=== PATIENT | female | born 1935 | race Caucasian/White ===

== ENCOUNTER 2021-10-31 01:29 | Inpatient (IN) | payer MEDICARE ==
[2021-10-31 01:37] VITALS: BMI 26.6
[2021-10-31] MEDS ORDERED: Senokot S 8.6-50 MG TAB PO PRN (03:14)
[2021-10-31] MEDS ORDERED: Acetaminophen 325 MG TAB PO PRN (03:14)
[2021-10-31] MEDS ORDERED: Bisacodyl 5 MG TAB PO PRN (03:14)
[2021-10-31] MEDS ORDERED: Ondansetron PF 4 MG/2 ML Vial IVP PRN (03:14)
[2021-10-31] MEDS ORDERED: HYDROcodone/Acetaminophen 5/325 mg Tablet PO PRN (03:14)
[2021-10-31] MEDS ORDERED: Nitroglycerin 0.4 MG TAB (25 Tab Bottle) SL PRN (03:24)
[2021-10-31 05:23] LABS: #Basophils 0.1 10x3/uL (0.0-0.2); #Eosinphils 0.2 10x3/uL (0.0-0.5); #Monocytes 0.9 10x3/uL (0.0-1.1); #Neutrophils 4.2 10x3/uL (1.5-8.4); %Basophils 0.7 % (0.0-2.0); %Eosinophils 2.4 % (0.0-6.0); %Lymphocytes 42.4 % (18.0-47.0); %Monocytes 9.2 % (0.0-10.0); %Neutrophils 45.1 % (40.0-75.0); Hemoglobin 16.2 g/dL (12.0-15.5); Mean Corpuscular HGB CONC 33.3 g/dL (32.0-36.0); Mean Corpuscular Hemoglobin 30.5 pg (27.0-33.0); Mean Corpuscular Volume 91.5 fl (81.6-98.3); Mean Platelet Volume 11.3 fl (7.4-10.4); Platelet Count 216 10x3/uL (150-450); Red Blood Cell (RBC) Count 5.32 10x6/uL (3.90-5.03); White Blood Cell (WBC) Count 9.2 10x3/uL (3.5-10.5)
[2021-10-31 05:47] LABS: Anion Gap 14 mmol/L (10-20); BUN (Urea Nitrogen) 12 mg/dL (9.8-20.1); Calc. Creatinine Clearance 65 mL/min (70-130); Carbon Dioxide 27 mmol/L (23-31); Chloride 105 mmol/L (98-107); Glucose 105 mg/dL (83-110); Potassium 3.4 mmol/L (3.5-5.1); Sodium 143 mmol/L (136-145)
[2021-10-31 06:18] LABS: Troponin I 0.373 ng/mL (< 0.028)
[2021-10-31] MEDS ORDERED: Iopamidol 300 61% 100 ML VIAL FS ONE (08:00)
[2021-10-31 08:52] LABS: Troponin I 0.374 ng/mL (< 0.028)
[2021-10-31] MEDS ORDERED: Enoxaparin Sodium 80 MG/0.8 ML SYRINGE SC SCH (11:00)
[2021-10-31] MEDS ORDERED: Labetalol HCl 100 MG/20 ML VIAL SLOW IVP PRN (16:30)
[2021-10-31] MEDS ORDERED: Moisturizing Cream (Eucerin) 113 GM JAR TOP PRN (16:30)
[2021-10-31] MEDS ORDERED: Electrolyte Replacement Protocol 1 EACH FS SCH (16:30)
[2021-10-31] MEDS ORDERED: Artificial Tear Sol 15 ML BOT EA EYE PRN (16:30)
[2021-10-31] MEDS ORDERED: Sodium Chloride 0.65% Nasal 44 ML BOT EA NARE PRN (16:30)
[2021-10-31] MEDS ORDERED: hydrALAZINE 20 MG/ML VIAL SLOW IVP PRN (16:30)
[2021-10-31] MEDS ORDERED: diphenhydrAMINE 50 MG/ML VIAL IVP SCH (17:14)
[2021-10-31] MEDS ORDERED: Famotidine/PF 20 mg/2ml Vial SLOW IVP SCH ×2 (17:15→17:30)
[2021-10-31] MEDS ORDERED: Lidocaine 1% 20 ML MDV ONE (17:30)
[2021-10-31] MEDS ORDERED: Nitroglycerin 50 MG/250 ML BOT 0 ML ONE (17:30)
[2021-10-31] MEDS ORDERED: Sodium Chloride 0.9% 1,000 ML IV SCH (17:30)
[2021-10-31] MEDS ORDERED: Heparin 10,000 UNITS/ 10 ML VIAL ONE (17:30)
[2021-10-31] MEDS ORDERED: Communication Order-Pharmacy FS SCH (17:30)
[2021-10-31] MEDS ORDERED: Potassium Chloride 20 MEQ TAB PO SCH (17:30)
[2021-10-31] MEDS ORDERED: Fentanyl 100 MCG/2 ML VIAL ONE (17:31)
[2021-10-31] MEDS ORDERED: Adenosine 6 MG/2 ML VIAL ONE (17:31)
[2021-10-31] MEDS ORDERED: Midazolam HCl 2 mg/2 ml Vial ONE (17:32)
[2021-10-31] MEDS ORDERED: Sodium Chloride 0.9% 1,000 ML ONE (17:32)
[2021-10-31] MEDS ORDERED: methylPREDNISolone Sod Succ/PF 125 MG/2 ML VIAL ONE (17:42)
[2021-10-31] MEDS ORDERED: diphenhydrAMINE 50 MG/ML VIAL ONE (17:42)
[2021-10-31] MEDS ORDERED: Famotidine/PF 20 mg/2ml Vial ONE (17:43)
[2021-10-31 18:15] LABS: Troponin I 0.146 ng/mL (< 0.028)
[2021-10-31] MEDS ORDERED: Digoxin 0.5 MG/2 ML AMP ONE (18:30)
[2021-10-31] MEDS ORDERED: Clopidogrel Bisulfate 300 MG TAB ONE (18:40)
[2021-10-31] MEDS ORDERED: Aspirin Chewable 81 MG TAB ONE (18:40)
[2021-10-31] MEDS ORDERED: Morphine 4 MG/ML VIAL ONE (18:49)
[2021-10-31] MEDS ORDERED: Ondansetron PF 4 MG/2 ML Vial ONE (18:53)
[2021-10-31] MEDS ORDERED: Protamine Sulfate 50 MG/5 ML VIAL ONE (19:35)
[2021-10-31] MEDS ORDERED: Carvedilol 6.25 MG TAB PO SCH (20:30)
[2021-10-31] MEDS ORDERED: Metoprolol Tartrate 25 MG TAB PO SCH ×2 (21:00)
[2021-10-31] MEDS ORDERED: Clopidogrel Bisulfate 75 MG TAB PO SCH (21:00)
[2021-10-31] MEDS ORDERED: Aspirin Chewable 81 MG TAB PO SCH (21:00)
[2021-10-31] MEDS ORDERED: Amlodipine 10 MG TAB PO SCH (21:00)
[2021-10-31] MEDS: Sodium Chloride 0.9% 1,000 ML IV SCH (22:34)
[2021-10-31] MEDS: Valsartan 80 MG TAB PO SCH (23:24)
[2021-11-01] MEDS: Sodium Chloride 0.9% 1,000 ML IV SCH (03:00)
[2021-11-01 04:44] LABS: #Monocytes 0.6 10x3/uL (0.0-1.1); #Neutrophils 9.4 10x3/uL (1.5-8.4); %Basophils 0.3 % (0.0-2.0); %Lymphocytes 7.6 % (18.0-47.0); %Monocytes 5.2 % (0.0-10.0); %Neutrophils 86.4 % (40.0-75.0); Hemoglobin 15.9 g/dL (12.0-15.5); Mean Corpuscular HGB CONC 33.2 g/dL (32.0-36.0); Mean Corpuscular Hemoglobin 30.9 pg (27.0-33.0); Mean Platelet Volume 11.7 fl (7.4-10.4); Platelet Count 190 10x3/uL (150-450); RBC Distribution Width 13.2 % (11.5-14.5); Red Blood Cell (RBC) Count 5.15 10x6/uL (3.90-5.03); White Blood Cell (WBC) Count 10.9 10x3/uL (3.5-10.5)
[2021-11-01 04:57] LABS: ALT (SGPT) 15 U/L (8-55); AST (SGOT) 31 U/L (5-34); Albumin 3.6 g/dL (3.4-4.8); Alkaline Phosphatase 82 U/L (40-110); Anion Gap 16 mmol/L (10-20); BUN (Urea Nitrogen) 16 mg/dL (9.8-20.1); Bilirubin, Total 0.5 mg/dL (0.2-1.2); Calc. Creatinine Clearance 53 mL/min (70-130); Calcium 8.6 mg/dL (7.8-10.44); Carbon Dioxide 21 mmol/L (23-31); Chloride 108 mmol/L (98-107); Globulin 2.7 g/dL (2.4-3.5); Glucose 200 mg/dL (83-110); Phosphorus 4.2 mg/dL (2.3-4.7); Potassium 4.7 mmol/L (3.5-5.1); Protein, Total 6.3 g/dL (5.8-8.1); Sodium 140 mmol/L (136-145)
[2021-11-01 05:07] LABS: Anion Gap 17 mmol/L (10-20); BUN (Urea Nitrogen) 16 mg/dL (9.8-20.1); Calc. Creatinine Clearance 55 mL/min (70-130); Calcium 8.6 mg/dL (7.8-10.44); Carbon Dioxide 19 mmol/L (23-31); Cardiac Risk 4.5 (Less than 4.5); Chloride 109 mmol/L (98-107); Cholesterol 241 mg/dl (< 200 Desired); Glucose 198 mg/dL (83-110); HDL Cholesterol 53 mg/dL (>60 Neg Risk); LDL Cholesterol, Calculated 171 mg/dL; Potassium 4.9 mmol/L (3.5-5.1); Sodium 140 mmol/L (136-145); Triglycerides 85 mg/dL (Less than 150)
[2021-11-01] MEDS ORDERED: Carvedilol 6.25 MG TAB PO SCH (08:00)
[2021-11-01] MEDS ORDERED: Rosuvastatin 10 MG TAB PO SCH ×2 (09:00→21:00)
[2021-11-01] MEDS: Valsartan 80 MG TAB PO SCH (09:59)
[2021-11-01 12:23] VITALS: BP 111/57; TEMP 98
[2021-11-01] MEDS ORDERED: Magnesium 2 GM/50 ML(in water) 2 GM in Premix Bag 1 BAG IVPB SCH (13:00)
[2021-11-01 14:20] LABS: Hemoglobin A1c 5.8 % (4.0-6.0)
[2021-11-01] MEDS ORDERED: methylPREDNISolone Sod Succ/PF 125 MG/2 ML VIAL IVP SCH (18:00)
[2021-11-02] MEDS ORDERED: Rosuvastatin 20 MG TAB PO SCH (09:00)
== END 2021-11-01 13:55 | disposition home or self-care (01) | DRG 247 ==
LOC: CSHTELE 01:29
PROVIDERS: ADMIT Internal Medicine; ATTEND Family Medicine
PROC: 027135Z Dilation of Coronary Artery, Two Arteries with Two Drug-eluting Intraluminal Devices, Percutaneous Approach (ICD-10-PCS; principal; 2021-10-31)
PROC: 4A023N7 Measurement of Cardiac Sampling and Pressure, Left Heart, Percutaneous Approach (ICD-10-PCS; 2021-10-31)
PROC: B2111ZZ Fluoroscopy of Multiple Coronary Arteries using Low Osmolar Contrast (ICD-10-PCS; 2021-10-31)
PROC: B2151ZZ Fluoroscopy of Left Heart using Low Osmolar Contrast (ICD-10-PCS; 2021-10-31)
PROC: B241ZZ3 Ultrasonography of Multiple Coronary Arteries, Intravascular (ICD-10-PCS; 2021-10-31)
DX: I21.4 Non-ST elevation (NSTEMI) myocardial infarction (principal); I10 Essential (primary) hypertension; I73.9 Peripheral vascular disease, unspecified; E78.5 Hyperlipidemia, unspecified; I25.10 Atherosclerotic heart disease of native coronary artery without angina pectoris; I34.0 Nonrheumatic mitral (valve) insufficiency; Z20.822 Contact with and (suspected) exposure to COVID-19; Z90.49 Acquired absence of other specified parts of digestive tract; Z90.710 Acquired absence of both cervix and uterus; Z95.820 Peripheral vascular angioplasty status with implants and grafts; Z98.890 Other specified postprocedural states; Z79.02 Long term (current) use of antithrombotics/antiplatelets; Z88.8 Allergy status to other drugs, medicaments and biological substances; Z79.899 Other long term (current) drug therapy; Z79.82 Long term (current) use of aspirin; Z87.891 Personal history of nicotine dependence; Z82.49 Family history of ischemic heart disease and other diseases of the circulatory system
CPT/HCPCS: 36415; 80048; 80061; 83036; 83735; 84100; 84484; 85025; 85347; 92928; 92978; 92979; 93005; 93010; 93306; 93458; 94760; 97139; 99152; 99153; C1726; C1753; C1760; C1769; C1874; C1887; C9600; J0153; J1160; J1200; J1644; J1650; J2250; J2270; J2405; J2720; J2930; J3010; J7050; Q9967; S0028; U0003; U0005

== ENCOUNTER 2021-11-04 21:59 | Inpatient (IN) | payer MEDICARE ==
[2021-11-04 22:00] VITALS: BMI 26.4
[2021-11-04] MEDS ORDERED: Albuterol Sulfate 2.5 mg/3 ml Neb NEB PRN (22:50)
[2021-11-04] MEDS ORDERED: Nitroglycerin 0.4 MG TAB (25 Tab Bottle) SL PRN (22:55)
[2021-11-04] MEDS ORDERED: Clopidogrel Bisulfate 75 MG TAB PO SCH (23:00)
[2021-11-04] MEDS ORDERED: Nitroglycerin 2% Ointment 1 INCH/1 GM Packet TOP SCH (23:00)
[2021-11-04] MEDS ORDERED: Enoxaparin Sodium 80 MG/0.8 ML SYRINGE SC SCH (23:00)
[2021-11-04] MEDS ORDERED: Furosemide 40 MG/4 ML VIAL SLOW IVP SCH (23:00)
[2021-11-04 23:26] LABS: INR-International Normal Ratio 0.9; PTT 27.3 sec (22.0-33.0); Prothrombin Time 10.3 sec (9.5-12.1)
[2021-11-04] MEDS ORDERED: Potassium Chloride 20 MEQ TAB PO SCH (23:30)
[2021-11-04 23:41] LABS: Troponin I 1.051 ng/mL (< 0.028)
[2021-11-04 23:51] LABS: SARS-CoV-2 NAA Rapid Test DETECTED (NotDetected)
[2021-11-05 02:22] LABS: #Monocytes 0.2 10x3/uL (0.0-1.1); #Neutrophils 5.6 10x3/uL (1.5-8.4); %Basophils 0.2 % (0.0-2.0); %Lymphocytes 9.3 % (18.0-47.0); %Monocytes 2.4 % (0.0-10.0); %Neutrophils 87.6 % (40.0-75.0); Hemoglobin 15.1 g/dL (12.0-15.5); Mean Corpuscular HGB CONC 34.5 g/dL (32.0-36.0); Mean Corpuscular Hemoglobin 30.9 pg (27.0-33.0); Mean Corpuscular Volume 89.8 fl (81.6-98.3); Mean Platelet Volume 11.7 fl (7.4-10.4); Platelet Count 177 10x3/uL (150-450); RBC Distribution Width 13.2 % (11.5-14.5); Red Blood Cell (RBC) Count 4.88 10x6/uL (3.90-5.03); White Blood Cell (WBC) Count 6.4 10x3/uL (3.5-10.5)
[2021-11-05 02:31] LABS: Anion Gap 18 mmol/L (10-20); BUN (Urea Nitrogen) 20 mg/dL (9.8-20.1); Calc. Creatinine Clearance 47 mL/min (70-130); Calcium 8.6 mg/dL (7.8-10.44); Carbon Dioxide 26 mmol/L (23-31); Chloride 100 mmol/L (98-107); Glucose 273 mg/dL (83-110); Potassium 3.7 mmol/L (3.5-5.1); Sodium 140 mmol/L (136-145)
[2021-11-05 02:47] LABS: Critical Call Chem Troponin I RESULT DECREASING; Troponin I 0.969 ng/mL (< 0.028)
[2021-11-05] MEDS: Nitroglycerin 2% Ointment 1 INCH/1 GM Packet TOP SCH ×3 (05:20→21:34)
[2021-11-05] MEDS ORDERED: Furosemide 40 MG/4 ML VIAL SLOW IVP SCH (06:00)
[2021-11-05] MEDS ORDERED: Ventolin HFA Inhaler 60 PUFF INHALER INH PRN (07:00)
[2021-11-05] MEDS: Enoxaparin Sodium 80 MG/0.8 ML SYRINGE SC SCH ×2 (08:32→20:10)
[2021-11-05] MEDS: Aspirin 81 mg Enteric Coated Tablet PO SCH (08:33)
[2021-11-05] MEDS: Carvedilol 6.25 MG TAB PO SCH ×2 (08:33→16:10)
[2021-11-05] MEDS: Valsartan 80 MG TAB PO SCH (08:33)
[2021-11-05] MEDS: Ezetimibe 10 MG TAB PO SCH (08:33)
[2021-11-05] MEDS: Potassium Chloride 20 MEQ TAB PO SCH ×2 (16:15→16:22)
[2021-11-05 16:16] VITALS: BP 121/68
[2021-11-05] MEDS ORDERED: Clopidogrel Bisulfate 75 MG TAB PO SCH (21:00)
[2021-11-06] MEDS: Nitroglycerin 2% Ointment 1 INCH/1 GM Packet TOP SCH (06:07)
[2021-11-06] MEDS: Enoxaparin Sodium 80 MG/0.8 ML SYRINGE SC SCH (08:31)
[2021-11-06] MEDS: Carvedilol 6.25 MG TAB PO SCH (08:32)
[2021-11-06] MEDS: Valsartan 80 MG TAB PO SCH (08:53)
[2021-11-06] MEDS: Ezetimibe 10 MG TAB PO SCH (08:53)
[2021-11-06] MEDS ORDERED: Furosemide 20 MG/2 ML VIAL SLOW IVP SCH (09:00)
[2021-11-06] MEDS: Aspirin 81 mg Enteric Coated Tablet PO SCH (09:59)
== END 2021-11-06 14:06 | disposition home or self-care (01) | DRG 280 ==
LOC: CSHIMCU 21:59
PROVIDERS: ADMIT Family Medicine; ATTEND Internal Medicine
PROC: 8E0ZXY6 Isolation (ICD-10-PCS; principal; 2021-11-04)
DX: I50.23 Acute on chronic systolic (congestive) heart failure (principal); U07.1 COVID-19; I22.2 Subsequent non-ST elevation (NSTEMI) myocardial infarction; I73.9 Peripheral vascular disease, unspecified; E78.5 Hyperlipidemia, unspecified; I25.10 Atherosclerotic heart disease of native coronary artery without angina pectoris; F17.210 Nicotine dependence, cigarettes, uncomplicated; I10 Essential (primary) hypertension; I25.5 Ischemic cardiomyopathy; Z78.9 Other specified health status; Z88.8 Allergy status to other drugs, medicaments and biological substances; Z79.82 Long term (current) use of aspirin; Z79.899 Other long term (current) drug therapy; Z90.49 Acquired absence of other specified parts of digestive tract; Z90.710 Acquired absence of both cervix and uterus
CPT/HCPCS: 36415; 36416; 80048; 83735; 84443; 84484; 85025; 85610; 85730; 93005; 93010; 93306; 94760; J1650; J1940

== ENCOUNTER 2022-02-15 03:14 | Inpatient (IN) | payer MEDICARE ==
[2022-02-15 04:05] LABS: #Basophils 0.1 10x3/uL (0.0-0.2); #Eosinphils 0.2 10x3/uL (0.0-0.5); #Monocytes 0.8 10x3/uL (0.0-1.1); #Neutrophils 12.2 10x3/uL (1.5-8.4); %Basophils 0.4 % (0.0-2.0); %Eosinophils 1.1 % (0.0-6.0); %Lymphocytes 6.4 % (18.0-47.0); %Monocytes 5.4 % (0.0-10.0); %Neutrophils 86.3 % (40.0-75.0); Hemoglobin 16.5 g/dL (12.0-15.5); Mean Corpuscular HGB CONC 33.9 g/dL (32.0-36.0); Mean Corpuscular Hemoglobin 30.1 pg (27.0-33.0); Mean Corpuscular Volume 88.9 fl (81.6-98.3); Mean Platelet Volume 11.1 fl (7.4-10.4); Platelet Count 197 10x3/uL (150-450); Red Blood Cell (RBC) Count 5.48 10x6/uL (3.90-5.03); White Blood Cell (WBC) Count 14.1 10x3/uL (3.5-10.5)
[2022-02-15] MEDS ORDERED: Nitroglycerin 2% Ointment 1 INCH/1 GM Packet ONE (04:13)
[2022-02-15] MEDS ORDERED: Metoprolol Tartrate 5 MG/5 ML VIAL ONE (04:13)
[2022-02-15 04:17] LABS: ALT (SGPT) 13 U/L (8-55); AST (SGOT) 21 U/L (5-34); Albumin 4.1 g/dL (3.4-4.8); Alkaline Phosphatase 93 U/L (40-110); Anion Gap 15 mmol/L (10-20); BUN (Urea Nitrogen) 13 mg/dL (9.8-20.1); Bilirubin, Total 0.8 mg/dL (0.2-1.2); Calc. Creatinine Clearance 0 mL/min (70-130); Calcium 8.8 mg/dL (7.8-10.44); Carbon Dioxide 29 mmol/L (23-31); Chloride 102 mmol/L (98-107); Estimated GFR 77; Globulin 2.7 g/dL (2.4-3.5); Glucose 155 mg/dL (83-110); Protein, Total 6.8 g/dL (5.8-8.1); Sodium 143 mmol/L (136-145)
[2022-02-15 04:21] LABS: Potassium 2.8 mmol/L (3.5-5.1)
[2022-02-15] MEDS ORDERED: Potassium Chloride 20 MEQ TAB ONE (04:28)
[2022-02-15 04:40] LABS: CKMB 1.5 ng/mL (0-6.6)
[2022-02-15] MEDS ORDERED: Furosemide 40 MG/4 ML VIAL ONE (04:42)
[2022-02-15] MEDS ORDERED: methylPREDNISolone Sod Succ/PF 125 MG/2 ML VIAL ONE (04:42)
[2022-02-15] MEDS ORDERED: diphenhydrAMINE 50 MG/ML VIAL ONE (04:42)
[2022-02-15] MEDS ORDERED: Enoxaparin Sodium 60 MG/0.6 ML SYRINGE ONE (04:42)
[2022-02-15] MEDS ORDERED: Famotidine/PF 20 mg/2ml Vial ONE (04:43)
[2022-02-15] MEDS ORDERED: Aspirin 325 MG TAB ONE ×2 (04:43→04:59)
[2022-02-15 05:06] LABS: SARS-CoV-2 NAA Rapid Test Not Detected (NotDetected)
[2022-02-15] MEDS ORDERED: niCARdipine 25 MG/10 ML VIAL ONE (05:18)
[2022-02-15] MEDS ORDERED: Nitroglycerin 0.4 MG TAB (25 Tab Bottle) SL PRN (05:32)
[2022-02-15] MEDS ORDERED: niCARdipine 25 MG in Sodium Chloride 0.9% 250 ML 250 ML IVPB SCH (06:00)
[2022-02-15 06:34] VITALS: BMI 25.4
[2022-02-15] MEDS: Nitroglycerin 2% Ointment 1 INCH/1 GM Packet TOP SCH ×2 (06:41→13:51)
[2022-02-15 06:49] LABS: Magnesium 1.7 mg/dL (1.6-2.6)
[2022-02-15] MEDS ORDERED: Potassium Chloride 20 MEQ/100 ML PREMIX BAG ONE (06:53)
[2022-02-15] MEDS ORDERED: Potassium Chloride 20 MEQ in Premix Bag 1 BAG IVPB SCH (07:30)
[2022-02-15 08:11] LABS: CKMB 1.4 ng/mL (0-6.6)
[2022-02-15] MEDS ORDERED: FLU VACC QS2022-23(65YR UP)/PF 240 MCG/0.7 ML SYRINGE IM ONE (08:30)
[2022-02-15] MEDS ORDERED: Potassium Chloride 20 MEQ TAB PO SCH (08:45)
[2022-02-15] MEDS ORDERED: Carvedilol 6.25 MG TAB PO SCH (09:00)
[2022-02-15] MEDS: Clopidogrel Bisulfate 75 MG TAB PO SCH (09:10)
[2022-02-15] MEDS: Aspirin 81 mg Enteric Coated Tablet PO SCH (09:10)
[2022-02-15] MEDS: Valsartan 80 MG TAB PO SCH (09:11)
[2022-02-15 11:10] LABS: Anion Gap 20 mmol/L (10-20); BUN (Urea Nitrogen) 11 mg/dL (9.8-20.1); Calc. Creatinine Clearance 60 mL/min (70-130); Calcium 8.9 mg/dL (7.8-10.44); Carbon Dioxide 20 mmol/L (23-31); Chloride 102 mmol/L (98-107); Estimated GFR 80; Glucose 169 mg/dL (83-110); Potassium 3.9 mmol/L (3.5-5.1); Sodium 138 mmol/L (136-145)
[2022-02-15] MEDS ORDERED: LACTINEX 1 TAB PO SCH (12:00)
[2022-02-15] MEDS: cefTRIAXone\\ROCEPHIN 1 GM in Sodium Chloride 0.9% 100 ML IVPB SCH (12:26)
[2022-02-15] MEDS ORDERED: Iopamidol 370 76% 100 ML VIAL ONE (13:36)
[2022-02-15] MEDS: Furosemide 40 MG/4 ML VIAL SLOW IVP SCH (13:51)
[2022-02-15] MEDS ORDERED: Labetalol HCl 100 MG/20 ML VIAL SLOW IVP SCH (20:30)
[2022-02-15] MEDS ORDERED: Enoxaparin Sodium 40 MG/0.4 ML SYRINGE SC SCH (21:00)
[2022-02-16 04:23] LABS: #Basophils 0.1 10x3/uL (0.0-0.2); #Monocytes 0.8 10x3/uL (0.0-1.1); #Neutrophils 9.1 10x3/uL (1.5-8.4); %Basophils 0.4 % (0.0-2.0); %Eosinophils 0.2 % (0.0-6.0); %Lymphocytes 11.8 % (18.0-47.0); %Neutrophils 80.2 % (40.0-75.0); Hemoglobin 15.6 g/dL (12.0-15.5); Mean Corpuscular HGB CONC 33.3 g/dL (32.0-36.0); Mean Corpuscular Hemoglobin 29.7 pg (27.0-33.0); Mean Corpuscular Volume 89.3 fl (81.6-98.3); Mean Platelet Volume 11.7 fl (7.4-10.4); Platelet Count 210 10x3/uL (150-450); RBC Distribution Width 13.4 % (11.5-14.5); Red Blood Cell (RBC) Count 5.25 10x6/uL (3.90-5.03); White Blood Cell (WBC) Count 11.4 10x3/uL (3.5-10.5)
[2022-02-16 04:56] LABS: Anion Gap 18 mmol/L (10-20); BUN (Urea Nitrogen) 18 mg/dL (9.8-20.1); Calc. Creatinine Clearance 50 mL/min (70-130); Calcium 8.9 mg/dL (7.8-10.44); Carbon Dioxide 25 mmol/L (23-31); Chloride 103 mmol/L (98-107); Estimated GFR 65; Glucose 120 mg/dL (83-110); Potassium 3.8 mmol/L (3.5-5.1); Sodium 142 mmol/L (136-145)
[2022-02-16] MEDS: Furosemide 40 MG/4 ML VIAL SLOW IVP SCH (06:08)
[2022-02-16] MEDS: Valsartan 80 MG TAB PO SCH (07:48)
[2022-02-16] MEDS: Aspirin 81 mg Enteric Coated Tablet PO SCH (07:48)
[2022-02-16] MEDS: Clopidogrel Bisulfate 75 MG TAB PO SCH (07:48)
[2022-02-16] MEDS ORDERED: Carvedilol 12.5 MG TAB PO SCH (08:00)
[2022-02-16] MEDS ORDERED: LACTINEX 1 TAB PO SCH (09:00)
[2022-02-16 13:32] VITALS: BP 137/72; TEMP 97.7
[2022-02-16] MEDS: cefTRIAXone\\ROCEPHIN 1 GM in Sodium Chloride 0.9% 100 ML IVPB SCH (13:44)
== END 2022-02-16 12:45 | disposition home or self-care (01) | DRG 291 ==
LOC: CSHERS 03:14 → CSHICU 06:29
PROVIDERS: ADMIT Family Medicine; ATTEND Hospitalist
PROC: 5A09357 Assistance with Respiratory Ventilation, Less than 24 Consecutive Hours, Continuous Positive Airway Pressure (ICD-10-PCS; principal; 2022-02-15)
DX: I11.0 Hypertensive heart disease with heart failure (principal); I50.43 Acute on chronic combined systolic (congestive) and diastolic (congestive) heart failure; I16.1 Hypertensive emergency; N39.0 Urinary tract infection, site not specified; I73.9 Peripheral vascular disease, unspecified; I25.10 Atherosclerotic heart disease of native coronary artery without angina pectoris; Z20.822 Contact with and (suspected) exposure to COVID-19; E87.6 Hypokalemia; E78.00 Pure hypercholesterolemia, unspecified; E78.5 Hyperlipidemia, unspecified; Z88.8 Allergy status to other drugs, medicaments and biological substances; Z79.82 Long term (current) use of aspirin; Z79.899 Other long term (current) drug therapy; Z87.891 Personal history of nicotine dependence; I25.2 Old myocardial infarction; Z95.5 Presence of coronary angioplasty implant and graft; Z90.49 Acquired absence of other specified parts of digestive tract; Z90.710 Acquired absence of both cervix and uterus
CPT/HCPCS: 36415; 71045; 71275; 80048; 80053; 82553; 83605; 83735; 83880; 84443; 84484; 85025; 87040; 87077; 87149; 87186; 93005; 93010; 94660; 94760; 96365; 96372; 96375; J0696; J1200; J1650; J1940; J2930; J3480; J3490; Q9967; S0028; U0002

== ENCOUNTER 2022-02-17 17:26 | Inpatient (IN) | payer MEDICARE ==
[2022-02-17 18:54] LABS: #Eosinphils 0.5 10x3/uL (0.0-0.5); #Monocytes 0.6 10x3/uL (0.0-1.1); #Neutrophils 10.7 10x3/uL (1.5-8.4); %Basophils 0.2 % (0.0-2.0); %Eosinophils 3.9 % (0.0-6.0); %Lymphocytes 8.2 % (18.0-47.0); %Monocytes 4.9 % (0.0-10.0); %Neutrophils 82.3 % (40.0-75.0); Hemoglobin 16.9 g/dL (12.0-15.5); Mean Corpuscular HGB CONC 33.8 g/dL (32.0-36.0); Mean Corpuscular Hemoglobin 30.3 pg (27.0-33.0); Mean Corpuscular Volume 89.8 fl (81.6-98.3); Mean Platelet Volume 11.3 fl (7.4-10.4); Platelet Count 244 10x3/uL (150-450); RBC Distribution Width 13.1 % (11.5-14.5); Red Blood Cell (RBC) Count 5.57 10x6/uL (3.90-5.03)
[2022-02-17 19:11] LABS: ALT (SGPT) 14 U/L (8-55); AST (SGOT) 19 U/L (5-34); Albumin 4.2 g/dL (3.4-4.8); Alkaline Phosphatase 90 U/L (40-110); Anion Gap 14 mmol/L (10-20); BUN (Urea Nitrogen) 17 mg/dL (9.8-20.1); Bilirubin, Total 0.6 mg/dL (0.2-1.2); Calc. Creatinine Clearance 0 mL/min (70-130); Calcium 10.1 mg/dL (7.8-10.44); Carbon Dioxide 33 mmol/L (23-31); Chloride 96 mmol/L (98-107); Estimated GFR 73; Globulin 3.2 g/dL (2.4-3.5); Glucose 148 mg/dL (83-110); Potassium 4.3 mmol/L (3.5-5.1); Protein, Total 7.4 g/dL (5.8-8.1); Sodium 139 mmol/L (136-145)
[2022-02-17 22:33] VITALS: BMI 25.9
[2022-02-17] MEDS ORDERED: Nitroglycerin 0.4 MG TAB (25 Tab Bottle) SL PRN (23:52)
[2022-02-17] MEDS ORDERED: Furosemide 40 MG/4 ML VIAL SLOW IVP SCH (23:59)
[2022-02-18] MEDS ORDERED: Carvedilol 6.25 MG TAB PO SCH
[2022-02-18] MEDS ORDERED: Acetaminophen 325 MG TAB PO PRN (00:01)
[2022-02-18] MEDS: Nitroglycerin 2% Ointment 1 INCH/1 GM Packet TOP SCH ×3 (00:26→17:07)
[2022-02-18 00:32] LABS: Magnesium 1.8 mg/dL (1.6-2.6)
[2022-02-18 00:37] LABS: Troponin I 0.015 ng/mL (< 0.028)
[2022-02-18 00:46] LABS: SARS-CoV-2 NAA Rapid Test Not Detected (NotDetected)
[2022-02-18 04:14] LABS: #Eosinphils 0.5 10x3/uL (0.0-0.5); #Monocytes 0.8 10x3/uL (0.0-1.1); #Neutrophils 9.9 10x3/uL (1.5-8.4); %Basophils 0.3 % (0.0-2.0); %Monocytes 6.8 % (0.0-10.0); %Neutrophils 81.5 % (40.0-75.0); Mean Corpuscular HGB CONC 33.3 g/dL (32.0-36.0); Mean Corpuscular Hemoglobin 29.6 pg (27.0-33.0); Mean Corpuscular Volume 88.9 fl (81.6-98.3); Mean Platelet Volume 11.3 fl (7.4-10.4); Platelet Count 240 10x3/uL (150-450); RBC Distribution Width 13.1 % (11.5-14.5); Red Blood Cell (RBC) Count 5.41 10x6/uL (3.90-5.03); White Blood Cell (WBC) Count 12.1 10x3/uL (3.5-10.5)
[2022-02-18 04:26] LABS: Anion Gap 15 mmol/L (10-20); BUN (Urea Nitrogen) 16 mg/dL (9.8-20.1); Calc. Creatinine Clearance 61 mL/min (70-130); Calcium 9.3 mg/dL (7.8-10.44); Carbon Dioxide 30 mmol/L (23-31); Chloride 96 mmol/L (98-107); Estimated GFR 80; Glucose 142 mg/dL (83-110); Potassium 3.5 mmol/L (3.5-5.1); Sodium 137 mmol/L (136-145)
[2022-02-18 04:34] LABS: Troponin I 0.016 ng/mL (< 0.028)
[2022-02-18 04:56] LABS: Bilirubin Neg (Negative); Blood, Urine Negative (Negative); Glucose, Urine (Dipstick) Normal (Negative); Ketone, Urine 5 mg/dL (Negative); Leukocyte Negative (Negative); Nitrite Negative (Negative); Protein, Urine (Dipstick) Negative (Neg-Trace); Urobilinogen Normal mg/dL (Less than 2); pH, Urine 6.5 (5.0-9.0)
[2022-02-18 04:58] LABS: Urine Culture Reflex No No
[2022-02-18] MEDS ORDERED: Potassium Chloride 20 MEQ TAB PO SCH (05:00)
[2022-02-18 05:06] LABS: Bacteria/HPF None Seen HPF (None Seen); RBC/HPF 0-3 HPF (0-3); Squamous Epithelial 0-3 HPF (0-3); WBC/HPF 0-3 HPF (0-3)
[2022-02-18] MEDS ORDERED: Furosemide 40 MG/4 ML VIAL SLOW IVP SCH (08:00)
[2022-02-18] MEDS ORDERED: Furosemide 20 MG TAB PO SCH (09:00)
[2022-02-18] MEDS: Enoxaparin Sodium 40 MG/0.4 ML SYRINGE SC SCH (11:27)
[2022-02-18] MEDS: Aspirin 81 mg Enteric Coated Tablet PO SCH (11:27)
[2022-02-18] MEDS: Nitrofurantoin Monohyd/M-Cryst 100 MG CAP PO SCH ×2 (11:28→21:50)
[2022-02-18] MEDS: Carvedilol 6.25 MG TAB PO SCH ×2 (11:29→17:07)
[2022-02-18] MEDS: Valsartan 80 MG TAB PO SCH (11:30)
[2022-02-18] MEDS ORDERED: methylPREDNISolone Sod Succ 40 MG VIAL IVP SCH (16:30)
[2022-02-18] MEDS: Mometasone/Formoterol 60 PUFF AER INH SCH (19:35)
[2022-02-18] MEDS ORDERED: Rosuvastatin 10 MG TAB PO SCH (21:00)
[2022-02-18] MEDS ORDERED: Clopidogrel Bisulfate 75 MG TAB PO SCH (21:00)
[2022-02-19] MEDS: Nitroglycerin 2% Ointment 1 INCH/1 GM Packet TOP SCH ×3 (00:34→16:57)
[2022-02-19 06:13] LABS: Anion Gap 16 mmol/L (10-20); BUN (Urea Nitrogen) 23 mg/dL (9.8-20.1); Calc. Creatinine Clearance 54 mL/min (70-130); Carbon Dioxide 28 mmol/L (23-31); Chloride 98 mmol/L (98-107); Estimated GFR 72; Glucose 158 mg/dL (83-110); Potassium 4.5 mmol/L (3.5-5.1); Sodium 137 mmol/L (136-145)
[2022-02-19 06:19] LABS: Troponin I Less than 0.010 ng/mL (< 0.028)
[2022-02-19] MEDS: Mometasone/Formoterol 60 PUFF AER INH SCH (07:00)
[2022-02-19] MEDS: Valsartan 80 MG TAB PO SCH (08:39)
[2022-02-19] MEDS: Enoxaparin Sodium 40 MG/0.4 ML SYRINGE SC SCH (08:39)
[2022-02-19] MEDS: Aspirin 81 mg Enteric Coated Tablet PO SCH (08:40)
[2022-02-19] MEDS: Nitrofurantoin Monohyd/M-Cryst 100 MG CAP PO SCH (08:40)
[2022-02-19] MEDS: Carvedilol 6.25 MG TAB PO SCH (08:40)
[2022-02-19 16:15] VITALS: BP 140/81; TEMP 98.1
== END 2022-02-19 17:33 | disposition home or self-care (01) | DRG 189 ==
LOC: CSHERS 17:26 → INTOOBSV 22:30 → CSHTELE 22:30 → OBSVTOIN 02-19 12:21
PROVIDERS: ADMIT Family Medicine; ATTEND Internal Medicine
DX: J96.01 Acute respiratory failure with hypoxia (principal); I50.42 Chronic combined systolic (congestive) and diastolic (congestive) heart failure; J44.1 Chronic obstructive pulmonary disease with (acute) exacerbation; I11.0 Hypertensive heart disease with heart failure; I25.10 Atherosclerotic heart disease of native coronary artery without angina pectoris; I73.9 Peripheral vascular disease, unspecified; E78.00 Pure hypercholesterolemia, unspecified; Z20.822 Contact with and (suspected) exposure to COVID-19; Z88.8 Allergy status to other drugs, medicaments and biological substances; Z87.891 Personal history of nicotine dependence; Z79.82 Long term (current) use of aspirin; Z79.899 Other long term (current) drug therapy; I25.2 Old myocardial infarction; Z90.49 Acquired absence of other specified parts of digestive tract; Z90.710 Acquired absence of both cervix and uterus; Z95.5 Presence of coronary angioplasty implant and graft
CPT/HCPCS: 36415; 51701; 71045; 80048; 80053; 81001; 83735; 83880; 84484; 85025; 87040; 93005; 93010; 94640; 94664; 94760; 96372; 96374; 96375; 96376; G0378; J1650; J1940; J2920; J7620; U0002

== ENCOUNTER 2022-03-11 12:59 | Inpatient (IN) | payer MEDICARE ==
[2022-03-11 13:24] VITALS: BMI 25.4
[2022-03-11] MEDS ORDERED: HYDROcodone/Acetaminophen 5/325 mg Tablet PO PRN (13:42)
[2022-03-11] MEDS ORDERED: Acetaminophen 325 MG TAB PO PRN (13:42)
[2022-03-11] MEDS ORDERED: Ondansetron PF 4 MG/2 ML Vial IVP PRN (13:42)
[2022-03-11] MEDS ORDERED: Heparin 10,000 UNITS/ 10 ML VIAL SLOW IVP SCH ×2 (14:00→15:30)
[2022-03-11] MEDS ORDERED: Furosemide 20 MG TAB PO SCH (14:00)
[2022-03-11] MEDS ORDERED: Heparin 25,000 units/D5W 500 ML IVPB SCH ×2 (14:00→15:30)
[2022-03-11] MEDS ORDERED: Clopidogrel Bisulfate 75 MG TAB PO SCH (14:00)
[2022-03-11] MEDS ORDERED: Dextrose 50% Abboject 50 ML SYRINGE SLOW IVP PRN (14:14)
[2022-03-11] MEDS ORDERED: Dextrose 5% in Water 1,000 ML IV PRN (14:14)
[2022-03-11] MEDS ORDERED: HumaLOG 300 UNITS/3 ML VIAL SC PRN (14:14)
[2022-03-11 14:43] LABS: Hemoglobin 13.5 g/dL (12.0-15.5); Platelet Count 184 10x3/uL (150-450)
[2022-03-11 14:59] LABS: PTT 73.6 sec (22.0-33.0)
[2022-03-11] MEDS: Mometasone/Formoterol 60 PUFF AER INH SCH (20:10)
[2022-03-11] MEDS: Rosuvastatin 10 MG TAB PO SCH (20:22)
[2022-03-12 04:07] LABS: #Monocytes 0.3 10x3/uL (0.0-1.1); #Neutrophils 15.6 10x3/uL (1.5-8.4); %Basophils 0.2 % (0.0-2.0); %Lymphocytes 6.7 % (18.0-47.0); %Monocytes 1.9 % (0.0-10.0); %Neutrophils 90.5 % (40.0-75.0); Hemoglobin 13.1 g/dL (12.0-15.5); Mean Corpuscular HGB CONC 33.3 g/dL (32.0-36.0); Mean Corpuscular Volume 90.1 fl (81.6-98.3); Mean Platelet Volume 11.8 fl (7.4-10.4); Platelet Count 164 10x3/uL (150-450); RBC Distribution Width 14.2 % (11.5-14.5); Red Blood Cell (RBC) Count 4.36 10x6/uL (3.90-5.03); White Blood Cell (WBC) Count 17.2 10x3/uL (3.5-10.5)
[2022-03-12 04:28] LABS: ALT (SGPT) 12 U/L (8-55); AST (SGOT) 19 U/L (5-34); Albumin 3.1 g/dL (3.4-4.8); Alkaline Phosphatase 65 U/L (40-110); Anion Gap 16 mmol/L (10-20); BUN (Urea Nitrogen) 32 mg/dL (9.8-20.1); Bilirubin, Total 0.4 mg/dL (0.2-1.2); Calc. Creatinine Clearance 42 mL/min (70-130); Calcium 8.2 mg/dL (7.8-10.44); Carbon Dioxide 23 mmol/L (23-31); Chloride 106 mmol/L (98-107); Estimated GFR 52; Globulin 2.7 g/dL (2.4-3.5); Glucose 156 mg/dL (83-110); Protein, Total 5.8 g/dL (5.8-8.1); Sodium 140 mmol/L (136-145)
[2022-03-12] MEDS: Mometasone/Formoterol 60 PUFF AER INH SCH ×2 (06:35→19:10)
[2022-03-12] MEDS: Aspirin 81 mg Enteric Coated Tablet PO SCH (08:56)
[2022-03-12] MEDS: predniSONE 20 MG TAB PO SCH (08:56)
[2022-03-12] MEDS: Clopidogrel Bisulfate 75 MG TAB PO SCH (08:56)
[2022-03-12] MEDS: Azithromycin 250 MG TAB PO SCH (09:23)
[2022-03-12] MEDS ORDERED: Furosemide 20 MG TAB PO SCH (11:00)
[2022-03-12] MEDS: Furosemide 20 MG TAB PO SCH (16:31)
[2022-03-12] MEDS ORDERED: Labetalol HCl 100 MG/20 ML VIAL SLOW IVP PRN (20:01)
[2022-03-12] MEDS: Rosuvastatin 10 MG TAB PO SCH (20:49)
[2022-03-12] MEDS: Cilostazol 100 MG TAB PO SCH (20:49)
[2022-03-12] MEDS ORDERED: Metoprolol Tartrate 5 MG/5 ML VIAL ONE (23:04)
[2022-03-12] MEDS ORDERED: Metoprolol Tartrate 5 MG/5 ML VIAL IVP SCH (23:15)
[2022-03-12] MEDS ORDERED: Amiodarone In Dextrose 200 ML IVPB SCH (23:45)
[2022-03-12 23:49] LABS: Anion Gap 13 mmol/L (10-20); BUN (Urea Nitrogen) 30 mg/dL (9.8-20.1); Calc. Creatinine Clearance 54 mL/min (70-130); Calcium 8.9 mg/dL (7.8-10.44); Carbon Dioxide 25 mmol/L (23-31); Chloride 107 mmol/L (98-107); Estimated GFR 70; Glucose 118 mg/dL (83-110); Magnesium 2.3 mg/dL (1.6-2.6); Potassium 3.8 mmol/L (3.5-5.1); Sodium 141 mmol/L (136-145)
[2022-03-12 23:56] LABS: Troponin I 0.221 ng/mL (< 0.028)
[2022-03-12] MEDS ORDERED: Dextrose 5% in Water 100 ML ONE (23:56)
[2022-03-12] MEDS ORDERED: Amiodarone 150 MG in Dextrose 5% in Water 100 ML IVPB SCH (23:59)
[2022-03-13] MEDS ORDERED: Carvedilol 12.5 MG TAB PO SCH ×2 (01:00→09:00)
[2022-03-13 05:16] LABS: #Monocytes 1.1 10x3/uL (0.0-1.1); #Neutrophils 10.8 10x3/uL (1.5-8.4); %Basophils 0.3 % (0.0-2.0); %Eosinophils 0.1 % (0.0-6.0); %Lymphocytes 16.2 % (18.0-47.0); %Monocytes 7.4 % (0.0-10.0); %Neutrophils 75.5 % (40.0-75.0); Hemoglobin 12.9 g/dL (12.0-15.5); Mean Corpuscular HGB CONC 33.1 g/dL (32.0-36.0); Mean Corpuscular Volume 90.7 fl (81.6-98.3); Mean Platelet Volume 11.6 fl (7.4-10.4); Platelet Count 204 10x3/uL (150-450); RBC Distribution Width 14.3 % (11.5-14.5); White Blood Cell (WBC) Count 14.3 10x3/uL (3.5-10.5)
[2022-03-13 05:16] LABS: ALT (SGPT) 11 U/L (8-55); AST (SGOT) 14 U/L (5-34); Albumin 3.2 g/dL (3.4-4.8); Alkaline Phosphatase 80 U/L (40-110); Anion Gap 12 mmol/L (10-20); BUN (Urea Nitrogen) 30 mg/dL (9.8-20.1); Bilirubin, Total 0.3 mg/dL (0.2-1.2); Calc. Creatinine Clearance 51 mL/min (70-130); Carbon Dioxide 28 mmol/L (23-31); Chloride 106 mmol/L (98-107); Estimated GFR 66; Globulin 2.7 g/dL (2.4-3.5); Glucose 113 mg/dL (83-110); Potassium 3.7 mmol/L (3.5-5.1); Protein, Total 5.9 g/dL (5.8-8.1); Sodium 142 mmol/L (136-145)
[2022-03-13] MEDS: Mometasone/Formoterol 60 PUFF AER INH SCH (07:50)
[2022-03-13] MEDS: Aspirin 81 mg Enteric Coated Tablet PO SCH (08:29)
[2022-03-13] MEDS: predniSONE 20 MG TAB PO SCH (08:29)
[2022-03-13] MEDS: Furosemide 20 MG TAB PO SCH ×2 (08:30→14:32)
[2022-03-13] MEDS: Clopidogrel Bisulfate 75 MG TAB PO SCH (08:30)
[2022-03-13] MEDS: Cilostazol 100 MG TAB PO SCH (08:30)
[2022-03-13] MEDS: Azithromycin 250 MG TAB PO SCH (08:30)
[2022-03-13 14:15] LABS: Hemoglobin 13.2 g/dL (12.0-15.5); Platelet Count 196 10x3/uL (150-450)
[2022-03-13 17:18] VITALS: BP 136/64; TEMP 96.8
[2022-03-14] MEDS ORDERED: FLU VACC QS2022-23(65YR UP)/PF 240 MCG/0.7 ML SYRINGE IM ONE (14:00)
== END 2022-03-13 17:55 | disposition home or self-care (01) | DRG 300 ==
LOC: CSHIMCU 12:59
PROVIDERS: ADMIT Internal Medicine; ATTEND Family Medicine
DX: E11.51 Type 2 diabetes mellitus with diabetic peripheral angiopathy without gangrene (principal); I50.42 Chronic combined systolic (congestive) and diastolic (congestive) heart failure; T82.898A Other specified complication of vascular prosthetic devices, implants and grafts, initial encounter; N17.9 Acute kidney failure, unspecified; J44.1 Chronic obstructive pulmonary disease with (acute) exacerbation; J96.11 Chronic respiratory failure with hypoxia; I25.10 Atherosclerotic heart disease of native coronary artery without angina pectoris; I73.9 Peripheral vascular disease, unspecified; I11.0 Hypertensive heart disease with heart failure; E78.5 Hyperlipidemia, unspecified; E86.0 Dehydration; I95.9 Hypotension, unspecified; I48.0 Paroxysmal atrial fibrillation; Y83.8 Other surgical procedures as the cause of abnormal reaction of the patient, or of later complication, without mention of misadventure at the time of the procedure; Z88.8 Allergy status to other drugs, medicaments and biological substances; Z79.82 Long term (current) use of aspirin; Z79.51 Long term (current) use of inhaled steroids; Z95.5 Presence of coronary angioplasty implant and graft; Z87.891 Personal history of nicotine dependence; I25.2 Old myocardial infarction; Z79.899 Other long term (current) drug therapy
CPT/HCPCS: 36415; 36416; 80053; 83735; 84484; 85025; 85730; 93005; 93010; 94640; 94664; 94760; J0282; J1644; J1815; J7070; J7512; J7620